=== PATIENT | male | born 1955 | race American Indian/Alaskan Native ===

== ENCOUNTER 2017-01-21 11:01 | Outpatient (CLI) | payer OTHER ==
--- NOTE | 2017-01-21 12:24 | XRay Report ---
RIGHT KNEE, 2 views: History: Injury. The bony architecture is intact without evidence of fracture or dislocation. No significant soft tissue abnormality is seen. IMPRESSION: Normal right knee.
--- NOTE | 2017-01-21 12:25 | XRay Report ---
RIGHT HIP, 2 views: History: Injury. The bony architecture is intact without evidence of fracture or dislocation. No significant soft tissue abnormality is seen. IMPRESSION: Normal right hip.
--- NOTE | 2017-01-21 12:26 | XRay Report ---
LUMBOSACRAL SPINE, 3 VIEWS: History: Back injury Findings: Normal bone mineralization. No compression deformity or bone lesion. 5 mm anterolisthesis of L4 with respect to L5 is noted on the lateral image which appears to be secondary to degenerative facet arthropathy. The remaining lumbar vertebra are in normal alignment. There is normal disc space height throughout the lumbar region. There is moderate hypertrophic facet arthropathy at L3-4, L4-5 and L5-S1. Impression: Lumbar spondylosis as described. No acute process is noted.
== END 2017-01-21 11:02 | disposition home or self-care (01) ==
LOC: XRAY 11:01
PROVIDERS: ATTEND Internal Medicine
DX: M47.896 Other spondylosis, lumbar region (principal); M12.88 Other specific arthropathies, not elsewhere classified, other specified site; I50.89 Other heart failure; S49.90XA Unspecified injury of shoulder and upper arm, unspecified arm, initial encounter; F43.10 Post-traumatic stress disorder, unspecified; F32.9 Major depressive disorder, single episode, unspecified; G47.00 Insomnia, unspecified; R61 Generalized hyperhidrosis; R42 Dizziness and giddiness; X58.XXXA Exposure to other specified factors, initial encounter; Y93.89 Activity, other specified; Y92.89 Other specified places as the place of occurrence of the external cause; Y99.8 Other external cause status
CPT/HCPCS: 72100

== ENCOUNTER 2017-04-07 00:10 | Emergency (ER) | payer SELFPAY | END 2017-04-07 00:11 | disposition left against medical advice (07) | LOC: ED 00:10 | DX: M79.604 Pain in right leg (principal); Z53.21 Procedure and treatment not carried out due to patient leaving prior to being seen by health care provider ==